=== PATIENT | female | born 1965 | race African-American/Black ===

== ENCOUNTER 2020-10-22 01:54 | Emergency (ER) | payer OTHER ==
[~2020-10-22] VITALS: Ht 167.6 cm; Wt 103.0 kg
[2020-10-22 02:06] VITALS: Ht 167.6 cm; Wt 103.0 kg
[2020-10-22] MEDS ORDERED: MOT600 PO (04:07)
[2020-10-22 04:21] VITALS: BP 106/68
== END 2020-10-22 04:15 | disposition home or self-care (01) ==
LOC: ED 01:54
DX: M75.102 Unspecified rotator cuff tear or rupture of left shoulder, not specified as traumatic (principal)